=== PATIENT | male | born 1960 | race Caucasian/White ===

== ENCOUNTER 2020-01-18 11:00 | Outpatient (RCR) | payer OTHER, BC, SELFPAY ==
--- NOTE | 2019-12-02 08:43 | HP.OTEVAL_ITS ---
Patient's Visit Information FREDDY PALMA is a 58 year old M, referred to Occupational Therapy by ANISHA LARSEN, with a diagnosis of osteoarthritis of right wrist. Date of Evaluation: 11/30/19 Occupational Therapist: Bia Patterson, RYLEE/Amanda, CHT - Subjective Subjective: This 58 year old male was seen for OT eval-. sx on 2019. pt states in 1993 he had an injury to right wrist. Oct 21 2017, had work injury that hand 900# pined his right wrist in flexion until he was able to get his arm out from under the weight- Pt was working at [employer]- at the time. Pt is still working and is required to lift 70#. pt states he is happy with his procedure- states he is not as painful priro to sx. - Pain right wrist 2 Pain Intensity Range: 2, 9 - ROM Forearm: right 50 left 90 Wrist: right 35/30 left 55/65 Opposition: right 10 left 10 ROM Comments: pt demo with limited right wrist and forearm ROM - Strength [employer] Control Room Operator: right NT left 85# Lateral Pinch: right NT left 18# Tripod Pinch: right NT left 16# Strength Comments: will test right police officer crime prevention/pinch at latter date - Edema Wrist: right 19.5cm left 18cm - Sensation Sensation Comments: sensation around incison numbness - Quick DASH-Disab of Arm,Shoulder& Hand Quick DASH Score: 58.3325 - Goals Goal:: when pt cleared by pt will demo a increase in right police officer crime prevention strength by 20# to increase pts ind. with ADls and IADsl Goal:: pt will demo a increase in right wrist/forearm ROM by 20* to increase pts ind. with ADLs and IADLs Goal:: pt will report pain no greater than 1/10 with use of right hand with ADLs and IADLs by d/c Goal:: Pt will demo understanding of scar mtg. by end of 2nd session to increase tissue extensibility to limit scar adhesions and allow full tendons function by d/c. Goal:: Pt will demonstrate understanding of joint protection and adaptive equipment to decrease joint stress while performing ADL tasks by d/c. Pt will demo understanding of work/lifting and carry ergonomics to decrease stress on tendons/joints to increase pts independent with ADLs, IADLS and work tasks by d/c. 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 Pt demo with a decrease in ROM and strength limiting pts IND with ADLs and IADls at this time. Pt demo need for skilled OT services 2x week for 6 weeks to progress pt per order. Pt now can progress pervious orders to include short arc of the wrist and progress over the next several weeks * NO Resistant exercise* Rehabilitation Potential: Good - Anticipated Interventions Anticipated Interventions: A/AAROM/PROM, Scar Care, Triggerpoint Release, Modalities, Orthoses, Joint Protection/Energy Conservation, Ergonomic Education - Visit Plan Frequency: 1-2x /Week Duration: 6 Weeks TEXT: Thank you for the opportunity to evaluate your patient. For Medicare and Medicare HMO plans, please review the plan of care and approve it. It will need to be FAXED BACK to us at [phone] for Medicare purposes. Please let me know if there are questions or concerns regarding this plan of care. Physician Signature: Date:
--- NOTE | 2020-03-01 12:15 | HP.OTDCNRP_ITS ---
FREDDY PALMA was seen in my office for initial evaluation on 11/30/19. The following Plan of Care was established for this patient: Initial Frequency: 1-2x /Week Initial Duration: 6 Weeks Plan: gradual PRE Anticipated Interventions: A/AAROM/PROM, Scar Care, Triggerpoint Release, M odalities, Orthoses, Joint Protection/Energy Conservation, Ergonomic Education This patient was last seen in our office 01/18/20. Pertinent comments regarding their Occupational therapy will appear below: pt was seen in OT for 9 sessions. pt was progressing well with ROM and strength. Pt has not scheduled further apts and due to time lapse in skilled therapy services pt d/c at this time At this point I will be discontinuing this patient from occupational therapy. I would be happy to see this patient again in the future if found appropriate by the physician. Thank you! Bia Patterson, OTR/L, CHT
== END 2020-01-18 19:00 | disposition home or self-care (01) ==
LOC: OT 11:00
PROVIDERS: PCP Family Medicine
DX: M19.031 Primary osteoarthritis, right wrist (principal)
CPT/HCPCS: 97110; 97140; 97165; 97166

== ENCOUNTER 2024-09-07 07:34 | Emergency (ER) | payer OTHER, SELFPAY ==
[2024-09-07 07:35] VITALS: BP 178/98; PULSE 84; RESP 16; TEMP 36.4; O2SAT 95; BMI 34.9
--- NOTE | 2024-09-07 07:38 | EX.ED.UPPERE ---
HPI History of Present Illness Chief Complaint: Upper Extremity Injury PFSH PFSH Allergy/AdvReac Type Severity Reaction Status Date / Time No Known Allergies Allergy Verified 09/07/24 07:36 Social History Smoking Status: Never smoker EXAM Physical Exam Const Vital Signs: 09/07/24 07:35 Temperature 97.5 F L Temperature Source Oral Pulse Rate 84 Respiratory Rate 16 Blood Pressure 178/98 H Blood Pressure Mean 124 Pulse Ox 95 Oxygen Delivery Method Room Air [facility] [place] Narrative Medical decision making narrative: HISTORY OF PRESENT ILLNESS: 63-year-old male presents with right shoulder pain. No mechanical fall from standing. Notes he tripped out of bed. Denies head trauma loss of consciousness or neck pain. Notes right shoulder pain. Denies history of prior shoulder surgery. Denies numbness weakness or loss sensation. REVIEW OF SYSTEMS: Pertinent positives: Right shoulder pain Pertinent negatives: As per HPI PHYSICAL EXAM: Nursing triage notes reviewed, Vital signs reviewed Constitutional: please see mdm Extremities: No obvious deformity right shoulder, no clavicular tenderness, no scapular tenderness. Intact range of motion flexion extension internal/external rotation of the limited by pain in right shoulder. Neuro: Intact 5/5 strength with ok sign (median), intact finger abduction (ulnar) intact wrist extension (radial n). Intact sensation in the radial, ulnar, and median nerve distributions. Intact active neurofunction. Skin: No rash or lesions noted MEDICAL DECISION MAKING: Chief Complaint: Right shoulder pain External records reviewed: Reviewed prior imaging studies, allergies, current problem list and medications. Factors affecting care: none Social determinants of health: none History obtained from others: none Consults: none [facility] Narrative: The patient was initially hemodynamically stable, afebrile and nontoxic-appearing. Exam with TTP of right shoulder. But intact range of motion. I considered the following differential diagnosis: Right shoulder strain, thoracic strain, shoulder fractures location, clavicular fracture ALL IMAGES (IF OBTAINED) HAVE BEEN PERSONALLY REVIEWED AND INTERPRETED BY MYSELF. X-rays right shoulder is read reviewed personally myself and showed no acute bony abnormality including clavicular fracture, shoulder fracture or dislocation. Radiologist agreed with my interpretation. Patient likely suffering from an acute AC joint sprain. Will give sling. Give progressive mobility instructions. Will give ibuprofen instructions. The patient and/or family, caregivers express understanding. The patient and/or family, caregivers agrees with the plan. Shared decision making: I will have a discussion with the patient and or visitors regarding risk/benefits of further testing or admission. They will be made aware of of the risk/benefits inherent in this decision they will be given the opportunity to voice understanding. Total critical care time today provided was at least 0 minutes. This excludes separately billable procedures. Critical care time (if documented) is secondary to the patient having high probability of clinically significant/life threatening deterioration in the patient's condition which required my urgent intervention. Impression: 1. Acute shoulder pain 2. Acute right AC joint sprain Dispo: Discharge This note was generated with [employer] dictation software. It may contain incorrect words, spelling, and punctuation that were not noted in review of the chart prior to signing. Discharge Plan Triage Chief Complaint: Upper Extremity Injury ED Provider: Abhi Cabrera Dx/Rx/DC Orders Instructions: ED Sprain AC Joint Primary Care Provider: Mynor Morocho Referrals: Akhil Sanchez MD [Non-Staff] - Activity Restrictions/Additional Instructions: Thank you for trusting us with your care today! Your x-ray was negative for a broken bone or dislocated joint. Your injury likely resulted in an AC joint sprain. Please take Tylenol (2 pills, 650 mg), ibuprofen (2 pills, 400 mg) every 6 hours as needed for pain and fever control. Please wear your sling for comfort and rest for the first 24 to 48 hours. After which time I would discourage further sling use and encouraged progressive range of motion and mobility exercises and stretches to improve range of motion. Please stretch to your painful end range of motion and continue this for several days until mobility improves. After you have achieved full pain-free range of motion you can add resistance to these motions to improve muscularity, range of motion and to speed healing. Please return to the emergency department if your symptoms change or worsen. Please follow with your primary care physician for further outpatient evaluation and management. Print Language: Italian Disposition Disposition: Home, Self Care Discharge Date/Time: 09/07/24 08:32
--- NOTE | 2024-09-07 07:42 | RAD_ITS ---
INDICATION: pain after injury EXAMINATION/TECHNIQUE: X-RAY - RIGHT XR Shoulder Min 2 Views 4 VIEWS COMPARISON: No relevant prior comparison study available FINDINGS: SOFT TISSUES: No soft tissue swelling or gas. Calcification lateral to the humeral head consistent with calcific tendinitis. BONES/JOINTS: No acute fracture or subluxation.. Normal alignment. Preservation of the joint space.. No sclerotic or destructive changes observed. RAD/Shoulder min 2 Views IMPRESSION: 1. No evidence of acute fracture or dislocation. 2. Calcific tendinitis. Electronically Signed: Srini Reid MD at 8:17 EST ,
== END 2024-09-07 08:32 | disposition home or self-care (01) ==
PROVIDERS: Emergency Provider Emergency Medicine; PCP Family Medicine; Visit Provider Emergency Medicine
DX: S43.51XA Sprain of right acromioclavicular joint, initial encounter (principal); M25.511 Pain in right shoulder; W06.XXXA Fall from bed, initial encounter
CPT/HCPCS: 73030; 99283